=== PATIENT | male | born 1990 | race Caucasian/White ===

== ENCOUNTER 2023-04-05 00:58 | Emergency (ER) | payer OTHER, SELFPAY ==
[2023-04-05 01:11] VITALS: BMI 19.9
[2023-04-05 01:14] VITALS: BP 134/91; PULSE 111; RESP 19; TEMP 37.7; O2SAT 99
--- NOTE | 2023-04-05 01:24 | XRR_ITS ---
PROCEDURE INFORMATION: Exam: XR Chest Exam date and time: 04/05/2023 1:28 AM Age: 32 years old Clinical indication: Fever and shortness of breath; Patient HX: SOB with fever TECHNIQUE: Imaging protocol: Radiologic exam of the chest. Views: 1 view. COMPARISON: No relevant prior studies available. FINDINGS: Lungs: Unremarkable. No consolidation. Pleural spaces: Unremarkable. No pleural effusion. No pneumothorax. Heart/Mediastinum: Unremarkable. No cardiomegaly. Bones/joints: Unremarkable. XR/XR chest 1V portable [id number] IMPRESSION: No acute findings.
[2023-04-05] MEDS: sodium chloride 0.9% 1,000 ML 999 ML IV ×2 (01:35→02:59)
[2023-04-05] MEDS: acetaminophen 500 mg Tablet 1000 MG PO (01:35)
--- NOTE | 2023-04-05 01:39 | ECG_ITS ---
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 Measurements Intervals [place] Rate: 98 P: 53 [place]: 134 QRS: 45 QRSD: 94 T: 37 QT: 334 QTc: 426 Interpretive Statements SINUS RHYTHM No previous ECG available for comparison Electronically Signed On 04-05-2023 16:55:45 CDT by Sebastian Velasquez M.D. [email or web address]
[2023-04-05 01:45] LABS: Basophils % 0.1 %; Eosinophils % 0.2 %; Hematocrit 47.1 % (42.0-52.0); Hemoglobin 16.4 g/dL (11.7-16.6); Lymphocytes # 1.1 10^3/uL (0.8-4.8); Lymphocytes % 7.9 %; Mean Corpuscular HGB Conc 34.8 g/dL (30.0-36.0); Monocytes % 7.5 %; Neutrophils # 11.65 10^3/uL (1.8-7.7); Nucleated Red Blood Cells % 0 %; Platelet Count 168 10^3/cmm (130-400); Red Blood Count 5.29 10^6/uL (4.1-5.3); Red Cell Distribution Width 11.9 % (12.1-15.1); White Blood Count 13.9 10^3/uL (4.0-10.0)
[2023-04-05 01:47] VITALS: BP 132/62; PULSE 112; RESP 16; O2SAT 100
--- NOTE | 2023-04-05 02:11 | ED_ITS ---
HPI - SOB/Dyspnea General: Chief Complaint: Shortness of Breath/Dyspnea Stated Complaint: SoS\Tnkeling in Body Time Seen by Provider: 04/05/23 01:08 Source: patient Mode of arrival: ambulatory Limitations: no limitations History of Present Illness: HPI Narrative: 32-year-old male states he had a history of pneumonia and sepsis years ago he states that over the last 2 days has been having cough with fever body aches and shakes. He states has been extremely anxious over this states he had some generalized malaise and weakness. He is well-appearing here in no respiratory s tress his pulse ox is 99% on room air he is febrile here. Denies sore throat denies any chest pain denies any dysuria Associated symptoms: Reports fever(s); Deny abdominal pain, chest pain, nausea or vomiting Review of Systems Const: Reports: fever(s), chills and body aches; Denies: change in appetite Eyes: Denies: eye discomfort ENMT: Denies: throat pain or dental pain Card: Denies: chest pain Resp: Reports: non-productive cough; Denies: dyspnea GI: Denies: abdominal pain, nausea, vomiting or diarrhea : Denies: dysuria Musc: Denies: neck pain or back pain Skin/Breast: Denies: rash Neuro: Denies: headache(s) PFSH ED PFSH: Social History (Updated 04/05/23 @ 02:13 by Lakisha Devine MD) Smoking and tobacco status: current every day smoker Physical Exam Const: COMMON NORMALS: no acute distress, patient oriented x3 and healthy appearing HENMT: COMMON NORMALS: normocephalic and atraumatic HEAD & SCALP: normocephalic and atraumatic Eye: COMMON NORMALS: conjunctivae normal CONJUNCTIVA: Yes conjunctivae normal Neck/C-Spine: COMMON NORMALS: full ROM and supple Chest: COMMONS NORMALS: normal inspection of the chest and normal palpation of entire chest wall Resp: COMMON NORMALS: normal respiratory effort, No retractions, No use of accessory muscles and clear to auscultation bilaterally AUSCULTATION: clear to auscultation bilaterally Cardio: COMMON NORMALS: regular rhythm and No murmurs present (Cardio) RATE: tachycardic RHYTHM: regular rhythm GI: COMMON NORMALS: Normal to inspection, nondistended, normoactive bowel sounds present, Soft to palpation, non-tender and no masses PALPATION: Yes Soft to palpation Extremity: COMMON NORMALS: normal to inspection and full ROM Neuro: COMMON NORMALS: patient oriented x3, moves all extremities and no focal motor deficits Psych: COMMON NORMALS: mental status grossly normal, Normal thought process present and cooperative THOUGHT PROCESS: Normal thought process present Skin: COMMON NORMALS: no rashes or lesions noted and no wounds GENERAL SKIN EXAM: no rashes or lesions noted Course Vital Signs: Vital signs: Vital Signs Temperature 99.8 F H 04/05/23 01:14 Pulse Rate 111 H 04/05/23 01:14 Respiratory Rate 19 H 04/05/23 01:14 Blood Pressure 134/91 04/05/23 01:14 Pulse Oximetry 99 04/05/23 01:14 Oxygen Delivery Me thod Room Air 04/05/23 01:14 MDM - SOB/Dyspnea Medical Decision Making Patient presented with cough fever shortness of breath likely an upper respiratory infection blood work here normal x-ray shows no large pneumonia his heart rate and fevers improved here no signs of sepsis he is stable for discharge we will place him on antibiotics he is to follow-up with PCP and return if worsening. Medical Records I reviewed the patient's medical records. Lab Data I reviewed the patient's lab results. 04/05/23 01:40 04/05/23 01:40 Labs/Radiology: Laboratory Results WBC 13.9 10^3/uL (4.0-10.0) H 04/05/23 01:40 RBC 5.29 10^6/uL (4.1-5.3) 04/05/23 01:40 Hgb 16.4 g/dL (11.7-16.6) 04/05/23 01:40 Hct 47.1 % (42.0-52.0) 04/05/23 01:40 MCV 89.0 fl (80-94) 04/05/23 01:40 MCH 31.0 pg (28.0-34.0) 04/05/23 01:40 MCHC 34.8 g/dL (30.0-36.0) 04/05/23 01:40 RDW 11.9 % (12.1-15.1) L 04/05/23 01:40 Plt Count 168 10^3/cmm (130-400) 04/05/23 01:40 MPV 10.0 fL (7.4-10.4) 04/05/23 01:40 Neut % (Auto) 84.0 % 04/05/23 01:40 Lymph % (Auto) 7.9 % 04/05/23 01:40 [place] % (Auto) 7.5 % 04/05/23 01:40 Eos % (Auto) 0.2 % 04/05/23 01:40 Baso % (Auto) 0.1 % 04/05/23 01:40 Neut # (Auto) 11.65 10^3/uL (1.8-7.7) H 04/05/23 01:40 Lymph # (Auto) 1.1 10^3/uL (0.8-4.8) 04/05/23 01:40 [place] # (Auto) 1.0 10^3/uL (0.2-0.9) H 04/05/23 01:40 Eos # (Auto) 0.0 10^3/uL (0.0-0.8) 04/05/23 01:40 Baso # (Auto) 0.0 10^3/uL (0.0-0.1) 04/05/23 01:40 Nucleated RBC % (auto) 0 % 04/05/23 01:40 Nucleated RBCs # 0.0 /100WBC 04/05/23 01:40 Sodium 133 mmol/L (136-145) L 04/05/23 01:40 Potassium 3.3 mmol/L (3.5-5.1) L 04/05/23 01:40 Chloride 96 mmol/L (98-107) L 04/05/23 01:40 Carbon Dioxide 24 mmol/L (22-29) 04/05/23 01:40 Anion Gap 16.3 (5-19) 04/05/23 01:40 BUN 8 mg/dL (6-20) 04/05/23 01:40 Creatinine 1.0 mg/dL (0.7-1.2) 04/05/23 01:40 GFR Calculation 86.6 mL/min (90-130) L 04/05/23 01:40 Glucose 118 mg/dL (65-115) H 04/05/23 01:40 Calculated Osmolality 275 mOsm/kg (285-295) L 04/05/23 01:40 Lactate 1.5 mmol/L (0.5-2.2) 04/05/23 01:40 Calcium 8.9 mg/dL (8.5-10.5) 04/05/23 01:40 Total Bilirubin 0.6 mg/dL (0.15-1.2) 04/05/23 01:40 AST 28 U/L (0-40) 04/05/23 01:40 ALT 23 U/L (0-41) 04/05/23 01:40 Alkaline Phosphatase 94 U/L (40-130) 04/05/23 01:40 Total Protein 6.9 g/dL (6.6-8.7) 04/05/23 01:40 Albumin 4.1 g/dL (3.5-5.2) 04/05/23 01:40 Globulin 2.8 g/dL (1.3-4.6) 04/05/23 01:40 Urine Color Yellow (Yellow) 04/05/23 02:13 Urine Appearance Clear (CLEAR) 04/05/23 02:13 Urine pH 8 (5-7) H 04/05/23 02:13 Ur Specific [place] 1.015 (1.005-1.030) 04/05/23 02:13 Urine Protein Neg (Negative) 04/05/23 02:13 Urine Glucose (UA) Norm (Normal) 04/05/23 02:13 Urine Ketones 2+ (Negative) H 04/05/23 02:13 Urine Blood Neg (Negative) 04/05/23 02:13 Urine Nitrate Negative (Negative) 04/05/23 02:13 Urine Bilirubin Neg (Negative) 04/05/23 02:13 Prot Sulfosalicylic Acd Negative (Negative) 04/05/23 02:13 Urine Urobilinogen Neg mg/dL (Negative) 04/05/23 02:13 Ur Leukocyte Esterase Negative (Negative) 04/05/23 02:13 SARS-CoV-2 Ag (Rapid) negative (Negative) 04/05/23 01:40 Imaging Data CXR: I personally reviewed and interpreted this imaging study as follows: My impression: no acute abnormality EKG Data EKG 1: I personally reviewed and interpreted this EKG as follows: EKG Interpretation Date: 04/05/23 EKG interpretation time: 01:27 Interpretation: nsr hr [address] or t wave abnormalities qrs 94 qtc 389 Discharge Plan Discharge Patient Disposition: Home Clinical Impression: Acute upper respiratory infection Prescriptions: New cephalexin 500 mg capsule 500 mg PO TID 7 Days Qty: 21 0RF Discharge Orders: Discharge ED (Routine); Ordered 04/05/23 Ordered By: Lakisha Devine Referrals: Nupur Castillo MD [Primary Care Provider] - 1-3 days Discharge Diet: Advance as tolerated Discharge Activity: Resume usual activity Patient Instructions: Upper Respiratory Infection (ED) Coding Level of Care Code ED Umbrella Repairer for Mariela Randle
[2023-04-05 02:16] VITALS: BP 140/73; PULSE 98; RESP 16; O2SAT 100
[2023-04-05 02:17] LABS: Alanine Aminotransferase 23 U/L (0-41); Albumin Level 4.1 g/dL (3.5-5.2); Alkaline Phosphatase 94 U/L (40-130); Anion Gap 16.3 (5-19); Aspartate Amino Transferase 28 U/L (0-40); Blood Urea Nitrogen 8 mg/dL (6-20); Calcium 8.9 mg/dL (8.5-10.5); Carbon Dioxide 24 mmol/L (22-29); Chloride 96 mmol/L (98-107); Globulin 2.8 g/dL (1.3-4.6); Glomerular Filtration Rate 86.6 mL/min (90-130); Glucose 118 mg/dL (65-115); Osmolality Calculated 275 mOsm/kg (285-295); Potassium 3.3 mmol/L (3.5-5.1); Sodium 133 mmol/L (136-145); Total Bilirubin 0.6 mg/dL (0.15-1.2); Total Protein 6.9 g/dL (6.6-8.7)
[2023-04-05 02:18] LABS: Lactate (Lactic Acid level) 1.5 mmol/L (0.5-2.2)
[2023-04-05 02:19] LABS: Add Urine Microscopic? NO; Charge for UA Resulting for Rev
[2023-04-05 02:30] LABS: SARS Covid-2 Antigen negative (Negative)
[2023-04-05 02:34] LABS: Bilirubin Urine Neg (Negative); Blood Urine Neg (Negative); Glucose Urine UA Norm (Normal); Ketones Urine 2+ (Negative); Leukocyte Esterase Urine Negative (Negative); Nitrate Urine Negative (Negative); Protein Urine Neg (Negative); Specific Gravity, Urine 1.015 (1.005-1.030); Sulfosalicylic Acid Urine Negative (Negative); Urine Appearance Clear (CLEAR); Urine Color Yellow (Yellow); Urobilinogen Urine Neg (Negative); pH Urine 8 (5-7)
[2023-04-05 03:00] VITALS: BP 116/71; PULSE 94; RESP 16; O2SAT 98
[2023-04-05] MEDS: cephALEXin 500 mg Capsule PO (03:36)
[2023-04-05 03:42] VITALS: BP 116/71; PULSE 94; RESP 16; O2SAT 98
== END 2023-04-05 03:43 | disposition home or self-care (01) ==
PROVIDERS: Emergency Provider Emergency Medicine; PCP Family Medicine
DX: J06.9 Acute upper respiratory infection, unspecified (principal); Z20.822 Contact with and (suspected) exposure to COVID-19; F17.210 Nicotine dependence, cigarettes, uncomplicated
CPT/HCPCS: 71045; 80053; 81003; 83605; 85025; 87426; 93005; 99285; J7030